=== PATIENT | male | born 1960 | race Two or more races ===

== ENCOUNTER 2024-12-03 11:06 | Inpatient (IN) | payer OTHER ==
[~2024-12-03] VITALS: Ht 177.8 cm; Wt 80.3 kg
[2024-12-03 12:04] LABS: BASOPHILS % (AUTO) 0.6 % (0.0-2.0); EOSINOPHILS % (AUTO) 0.3 % (1.0-6.0); HEMATOCRIT 49.7 % (41-53); HEMOGLOBIN 16.4 g/dL (13.5-17.5); LYMPHOCYTES # (AUTO) 1.6 K/uL (1.0-4.8); LYMPHOCYTES % (AUTO) 12.1 % (22.0-44.0); MEAN CORPUSCULAR HEMOGLOBIN 28.4 pg (26.0-34.0); MEAN CORPUSCULAR HGB CONC 33.1 G/dL (31.0-37.0); MEAN CORPUSCULAR VOLUME 86 fL (80-100); MONOCYTES # (AUTO) 0.9 K/uL (0.1-1.0); MONOCYTES % (AUTO) 7.2 % (2.0-9.0); NEUTROPHILS # (AUTO) 10.3 K/uL (1.8-7.7); NEUTROPHILS % (AUTO) 79.8 % (40.0-70.0); PLATELET COUNT (AUTO) 272 K/uL (150-450); RED BLOOD CELL COUNT(AUTO) 5.79 MIL/uL (4.50-5.90); RED CELL DISTRIBUTION WIDTH 13.2 % (11.5-14.5); WHITE BLOOD COUNT (AUTO) 12.9 K/uL (4.5-11.0)
[2024-12-03 12:15] LABS: ANION GAP 10 mmol/L (8-16); CALCIUM, TOTAL 9.3 mg/dL (8.8-10.5); CARBON DIOXIDE 25 mmol/L (22-29); CHLORIDE 105 mmol/L (98-107); CREATININE 0.98 mg/dL (0.60-1.30); GLOMERULAR FILTR. RATE CALC > 60 mL/min (>60); GLUCOSE,RANDOM 71 mg/dL (70-110); POTASSIUM 3.9 mmol/L (3.5-5.1); SODIUM SERUM 140 mmol/L (136-145); UREA NITROGEN, BLOOD 14 mg/dL (7-18)
[2024-12-03 12:22] LABS: LACTIC ACID 1.7 mmol/L (0.4-2.0)
[2024-12-03 12:29] LABS: B-TYPE NATRIURETIC PEPTIDE 8 pg/mL (0-100)
[2024-12-03 12:39] LABS: CREATINE KINASE, TOTAL ONLY 86 U/L (39-308); LIPASE 44 U/L (16-77)
[2024-12-03 12:44] LABS: RBC MORPHOLOGY COMMENT NORMAL RBC MORPH
[2024-12-03 13:03] LABS: TROPONIN I-HIGH SENSITIVITY Less Than 4 ng/L (<76)
[2024-12-03 13:13] LABS: APPEARANCE,URINE TURBID (CLEAR); BILIRUBIN,URINE NEGATIVE (NEGATIVE); COLOR,URINE YELLOW (YELLOW); GLUCOSE, URINE (UA) NEGATIVE (NEGATIVE); KETONES,URINE TRACE mg/dL (NEGATIVE); LEUKOCYTE ESTERASE ,URINE NEGATIVE (NEGATIVE); NITRATE,URINE NEGATIVE (NEGATIVE); OCCULT BLOOD,URINE NEGATIVE (NEGATIVE); PROTEIN,URINE TRACE mg/dL (NEGATIVE); SPECIFIC GRAVITIY, URINE 1.025 (1.003-1.030); UROBILINOGEN,URINE <=1.0 mg/dL (<=1.0)
[2024-12-03 13:21] LABS: ALCOHOL, URINE DRUG SCREEN NEGATIVE (NEGATIVE); AMPHET/METH SCREEN,URINE POSITIVE (NEGATIVE); BARBITURATE SCREEN, URINE NEGATIVE (NEGATIVE); BENZODIAZEPINES SCREEN,URINE NEGATIVE (NEGATIVE); CANNABINOID SCREEN,URINE NEGATIVE (NEGATIVE); COCAINE SCREEN,URINE NEGATIVE (NEGATIVE); METHADONE SCREEN, URINE NEGATIVE (NEGATIVE); OPIATE SCREEN,URINE NEGATIVE (NEGATIVE); PHENCYCLIDINE SCREEN,URINE NEGATIVE (NEGATIVE)
[2024-12-03 13:27] LABS: AMORPHOUS SEDIMENT,UR Many /LPF (None Seen); BACTERIA,URINE Few /HPF (None Seen); RBC,URINE None Seen /HPF (0-2); SQUAMOUS EPITHELIAL CELL,UR Few /LPF (None Seen); WBC,URINE None Seen /HPF (0-5)
[2024-12-03] MEDS ORDERED: ZOLPIDEM TARTRATE 10 MG TABLET PO PRN (19:15)
[2024-12-03] MEDS ORDERED: MORPHINE SULFATE 2 MG/ML SYRINGE IVP PRN (19:15)
[2024-12-03] MEDS ORDERED: ONDANSETRON HCL 4 MG/2 ML VIAL IVP PRN (19:15)
[2024-12-03] MEDS ORDERED: ALBUTEROL SULFATE 2.5 MG/0.5 ML NEB SOLUTION NEB PRN (19:15)
[2024-12-03] MEDS ORDERED: IPRATROPIUM BROMIDE 0.5 MG/2.5 ML NEB SOLUTION NEB PRN (19:15)
[2024-12-03] MEDS ORDERED: BISACODYL 10 MG RECTAL RECTAL SUPPOSITORY PR PRN (19:15)
[2024-12-03 20:16] LABS: TROPONIN I-HIGH SENSITIVITY 4 ng/L (<76)
[2024-12-03 23:51] VITALS: BP 135/86; PULSE 76; RESP 18; TEMP 99.2; O2SAT 98
[2024-12-04] MEDS: HEPARIN SODIUM,PORCINE 5,000 UNITS/ML VIAL SQ SCH (00:17)
[2024-12-04] MEDS: ACETAMINOPHEN 325 MG TABLET PO PRN (00:17)
[2024-12-04] MEDS: NITROGLYCERIN 2% (1 GM=INCH) OINTMENT PACKET TP SCH (00:19)
[2024-12-04 01:30] LABS: TROPONIN I-HIGH SENSITIVITY 4 ng/L (<76)
[2024-12-04 04:00] VITALS: BP 107/65; PULSE 69; RESP 18; TEMP 98.7; O2SAT 96
[2024-12-04 07:32] LABS: TROPONIN I-HIGH SENSITIVITY 4 ng/L (<76)
[2024-12-04 07:56] VITALS: BP 120/58; PULSE 73; RESP 18; TEMP 98.7; O2SAT 97
[2024-12-04 08:51] LABS: CHOL/HDL RATIO 2.1 (4.2-7.3)
[2024-12-04] MEDS: PANTOPRAZOLE SODIUM 40 MG DR TABLET PO SCH (09:04)
[2024-12-04] MEDS: ASPIRIN 81 MG CHEWABLE TABLET PO SCH (09:09)
[2024-12-04 12:04] LABS: BASOPHILS % (AUTO) 0.7 % (0.0-2.0); EOSINOPHILS % (AUTO) 0.1 % (1.0-6.0); HEMATOCRIT 46.3 % (41-53); HEMOGLOBIN 15.3 g/dL (13.5-17.5); LYMPHOCYTES # (AUTO) 0.8 K/uL (1.0-4.8); LYMPHOCYTES % (AUTO) 8.2 % (22.0-44.0); MEAN CORPUSCULAR HEMOGLOBIN 28.5 pg (26.0-34.0); MEAN CORPUSCULAR HGB CONC 33.1 G/dL (31.0-37.0); MEAN CORPUSCULAR VOLUME 86 fL (80-100); MONOCYTES # (AUTO) 0.9 K/uL (0.1-1.0); MONOCYTES % (AUTO) 9.5 % (2.0-9.0); NEUTROPHILS # (AUTO) 7.5 K/uL (1.8-7.7); NEUTROPHILS % (AUTO) 81.5 % (40.0-70.0); PLATELET COUNT (AUTO) 235 K/uL (150-450); RED BLOOD CELL COUNT(AUTO) 5.37 MIL/uL (4.50-5.90); RED CELL DISTRIBUTION WIDTH 13.1 % (11.5-14.5); WHITE BLOOD COUNT (AUTO) 9.2 K/uL (4.5-11.0)
[2024-12-04 12:56] LABS: BILIRUBIN,TOTAL 0.6 mg/dL (0.1-1.0); CALCIUM, TOTAL 9.1 mg/dL (8.8-10.5); CREATININE 1.23 mg/dL (0.60-1.30); POTASSIUM 4.3 mmol/L (3.5-5.1); TOTAL PROTEIN, SERUM 6.7 g/dL (6.4-8.2)
[2024-12-04 14:53] VITALS: BP 121/66; PULSE 62; RESP 18; TEMP 98.9; O2SAT 98
[2024-12-04 16:14] VITALS: BP 122/76; PULSE 71; RESP 18; TEMP 97.4; O2SAT 97
[2024-12-04] MEDS: MAGNESIUM HYDROXIDE SUSPENSION 30 ML UDCUP PO PRN (17:02)
[2024-12-04 20:12] VITALS: BP 131/64; PULSE 71; RESP 18; TEMP 99.4; O2SAT 95
[2024-12-04 23:06] VITALS: BP 124/73; PULSE 75; RESP 18; TEMP 98.3; O2SAT 96
[2024-12-05 04:45] VITALS: BP 111/73; PULSE 69; RESP 18; TEMP 98.1; O2SAT 96
[2024-12-05 08:03] VITALS: BP 121/63; PULSE 61; RESP 18; TEMP 98.6; O2SAT 96
[2024-12-05] MEDS: RINGERS SOLUTION,LACTATED 1,000 ML IV ONE (16:35)
[2024-12-05 19:27] VITALS: BP 125/66; PULSE 70; RESP 18; TEMP 98.8; O2SAT 97
[2024-12-05] MEDS: ZOLPIDEM TARTRATE 5 MG TABLET PO PRN (20:50)
[2024-12-06 01:39] VITALS: BP 137/79; PULSE 76; RESP 20; TEMP 98.3; O2SAT 95
[2024-12-06 05:20] VITALS: BP 133/67; PULSE 66; RESP 20; TEMP 98.4; O2SAT 95
[2024-12-06 06:05] VITALS: BP 93/66; PULSE 73; RESP 18; TEMP 99; O2SAT 97
[2024-12-06] MEDS ORDERED: NITROGLYCERIN 0.4 MG SUBLINGUAL TABLET #25 SL PRN (07:15)
[2024-12-06 08:00] VITALS: BP 113/65; PULSE 63; RESP 16; TEMP 98.2; O2SAT 96
[2024-12-06 10:29] LABS: MTB PCR w/Rif. Resistance-SPUT NOT DETECTED (Not Detectd)
[2024-12-06 17:23] VITALS: BP 120/66; PULSE 62; RESP 16; TEMP 97.8; O2SAT 99
[2024-12-06 20:01] VITALS: BP 121/73; PULSE 61; RESP 17; TEMP 97; O2SAT 97
[2024-12-07 04:10] VITALS: BP 125/70; PULSE 61; RESP 18; TEMP 97.4; O2SAT 96
[2024-12-07 07:53] VITALS: BP 118/74; PULSE 74; RESP 20; TEMP 98.2; O2SAT 97
[2024-12-07 12:46] LABS: MTB PCR w/Rif. Resistance-SPUT NOT DETECTED (Not Detectd)
[2024-12-07 18:13] VITALS: BP 130/85; PULSE 60; RESP 18; TEMP 98.1; O2SAT 98
[2024-12-07 19:23] VITALS: BP 125/70; PULSE 58; RESP 18; TEMP 98.1; O2SAT 98
[2024-12-08 04:29] VITALS: BP 107/59; PULSE 60; RESP 18; TEMP 98.3; O2SAT 96
[2024-12-08 07:37] VITALS: BP 126/67; PULSE 53; RESP 18; TEMP 98; O2SAT 96
[2024-12-08 19:53] VITALS: BP 129/67; PULSE 56; RESP 18; TEMP 97.8; O2SAT 98
[2024-12-09 05:10] VITALS: BP 111/61; PULSE 59; RESP 19; TEMP 97.9; O2SAT 98
[2024-12-09 08:10] VITALS: BP 112/68; PULSE 52; RESP 18; TEMP 98; O2SAT 99
[2024-12-10 02:06] LABS: QUANTIFERON+, Nil Value 0.05 IU/mL; QUANTIFERON+,Mitogen Value 6.52 IU/mL; QUANTIFERON+,TB1 Antigen Value >10.00 IU/mL; QUANTIFERON+,TB2 Antigen Value >10.00 IU/mL; QUANTIFERON, TB GOLD PLUS Positive (Negative)
[2024-12-10 04:00] VITALS: BP 124/75; PULSE 52; RESP 20; TEMP 98.4; O2SAT 95
[2024-12-10 07:48] VITALS: BP 121/69; PULSE 61; RESP 18; TEMP 98.4; O2SAT 97
[2024-12-10 16:21] VITALS: BP 122/69; PULSE 55; RESP 18; TEMP 98.1; O2SAT 96
[2024-12-10 19:55] VITALS: BP 121/68; PULSE 62; RESP 18; TEMP 98.6; O2SAT 97
[2024-12-10 22:33] VITALS: BP 120/70; PULSE 55; RESP 20; TEMP 98.8; O2SAT 98
[2024-12-11 05:45] VITALS: BP 125/73; PULSE 60; RESP 18; TEMP 98.5; O2SAT 99
[2024-12-11 09:18] VITALS: BP 105/57; PULSE 57; RESP 18; TEMP 98.2; O2SAT 97
[2024-12-11 19:27] VITALS: BP 130/76; PULSE 70; RESP 18; TEMP 98.3; O2SAT 99
[2024-12-12 04:50] VITALS: BP 130/80; PULSE 66; RESP 18; TEMP 97.9; O2SAT 99
[2024-12-12 05:24] VITALS: BP 135/82; PULSE 58; RESP 18; TEMP 98.3; O2SAT 99
== END 2024-12-12 09:45 | DRG 177 ==
LOC: EMS 11:06 → EDH 19:14 → 5S 23:00 → 6S 12-04 22:53 → 6N 12-05 15:46
PROVIDERS: ADMIT Hospitalist; ATTEND Hospitalist
DX: A15.9 Respiratory tuberculosis unspecified (principal); R65.11 Systemic inflammatory response syndrome (SIRS) of non-infectious origin with acute organ dysfunction; N17.9 Acute kidney failure, unspecified; R07.89 Other chest pain; K21.9 Gastro-esophageal reflux disease without esophagitis; Z20.822 Contact with and (suspected) exposure to COVID-19; D72.829 Elevated white blood cell count, unspecified; E86.0 Dehydration; F17.200 Nicotine dependence, unspecified, uncomplicated
CPT/HCPCS: 71045; 71250; 80048; 80053; 80061; 80307; 81001; 82550; 83605; 83690; 83880; 84484; 85025; 85379; 86480; 87015; 87206; 87556; 93005; 93306; 94640; 99285; J1644; J7120; 36415-L1; 36415-TC

== ENCOUNTER 2025-01-15 11:50 | Emergency (ER) | payer OTHER ==
[~2025-01-15] VITALS: Ht 177.8 cm; Wt 77.3 kg
[2025-01-15 13:33] LABS: BASOPHILS % (AUTO) 0.9 % (0.0-2.0); EOSINOPHILS % (AUTO) 1.3 % (1.0-6.0); HEMATOCRIT 43.2 % (41-53); HEMOGLOBIN 14.6 g/dL (13.5-17.5); LYMPHOCYTES # (AUTO) 1.6 K/uL (1.0-4.8); MEAN CORPUSCULAR HEMOGLOBIN 28.5 pg (26.0-34.0); MEAN CORPUSCULAR HGB CONC 33.8 G/dL (31.0-37.0); MEAN CORPUSCULAR VOLUME 84 fL (80-100); MONOCYTES # (AUTO) 0.7 K/uL (0.1-1.0); MONOCYTES % (AUTO) 8.1 % (2.0-9.0); NEUTROPHILS # (AUTO) 6.5 K/uL (1.8-7.7); NEUTROPHILS % (AUTO) 71.7 % (40.0-70.0); PLATELET COUNT (AUTO) 261 K/uL (150-450); RED BLOOD CELL COUNT(AUTO) 5.12 MIL/uL (4.50-5.90); RED CELL DISTRIBUTION WIDTH 13.5 % (11.5-14.5); WHITE BLOOD COUNT (AUTO) 9.1 K/uL (4.5-11.0)
[2025-01-15 13:40] VITALS: TEMP 97.4
[2025-01-15 13:45] LABS: ANION GAP 9 mmol/L (8-16); CALCIUM, TOTAL 8.9 mg/dL (8.8-10.5); CARBON DIOXIDE 26 mmol/L (22-29); CHLORIDE 106 mmol/L (98-107); CREATININE 0.93 mg/dL (0.60-1.30); GLOMERULAR FILTR. RATE CALC > 60 mL/min (>60); GLUCOSE,RANDOM 103 mg/dL (70-110); SODIUM SERUM 141 mmol/L (136-145); UREA NITROGEN, BLOOD 14 mg/dL (7-18)
[2025-01-15 13:50] LABS: TROPONIN I-HIGH SENSITIVITY Less Than 4 ng/L (<76)
[2025-01-15] MEDS: KETOROLAC TROMETHAMINE 60 MG/2 ML VIAL IM ONE (14:01)
[2025-01-15] MEDS: ACETAMINOPHEN 500 MG TABLET PO ONE (14:02)
[2025-01-15 15:20] VITALS: BP 148/71; PULSE 61; RESP 16; O2SAT 97
== END 2025-01-15 15:25 ==
LOC: EMS 11:54
DX: M62.838 Other muscle spasm (principal); R53.1 Weakness; H57.11 Ocular pain, right eye; K21.9 Gastro-esophageal reflux disease without esophagitis; F17.210 Nicotine dependence, cigarettes, uncomplicated
CPT/HCPCS: 99285; 70450; 80048; 84484; 85025; 36415; 96372; J1885